=== PATIENT | male | born 1950 | race Caucasian/White ===

== ENCOUNTER 2016-10-28 12:52 | Emergency (ER) | payer OTHER ==
--- NOTE | 2016-10-28 13:00 | PDOC ---
History of Present Illness - General History Source: Patient Exam Limitations: No Limitations - History of Present Illness Initial Comments: 10/28/16 13:02 The patient is a 66 year old male, with a significant past medical history of right arthroscopic RCR and prior right shoulder dislocation, who presents to the emergency department with right shoulder pain since today. The patient reports falling off a ladder landing on his right shoulder earlier today. He denies any LOC or head trauma. Since then he reports having pain in his right shoulder with limited ROM and loss of strength in his right shoulder. He ranks his pain a 7/10 in pain intensity. He denies any numbness and tingling in his UE. 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 He denies any recent fevers, chills, headache or dizziness. He denies any recent nausea, vomit, diarrhea or constipation. He denies any other injuries or complaints of pain at this time. Allergies: NKA Past surgical history: see HPI Social History: Nonsmoker. Occasional drinker. Deines drug use. PCP: N/A <Jaxon Person - Last Filed: 10/28/16 15:21> - General History Source: Patient (Patient walked in along with family complaining of right shoulder pain, after reportedly fell off a ladder, landing on the right shoulder ) <Dalton Shafer - Last Filed: 10/28/16 16:23> - General Chief Complaint: Injury Stated Complaint: RT SHOULDER PAIN Time Seen by Provider: 10/28/16 12:54 Past History - Travel Traveled outside of the country in the last 30 days: No - Surgical History Orthopedic Surgery: Yes (Right RCR and right shoulder dislocation) <Jaxon Person - Last Filed: 10/28/16 15:21> <Dalton Shafer - Last Filed: 10/28/16 16:23> - Past Medical History Allergies/Adverse Reactions: Allergies Allergy/AdvReac Type Severity Reaction Status Date / Time No Known Allergies Allergy Verified 10/28/16 12:53 Home Medications: Ambulatory Orders Lisinopril 5 mg PO DAILY 10/28/16 Review of Systems - Review of Systems Constitutional: No: Symptoms Reported HEENTM: No: Symptoms Reported Respiratory: No: Symptoms reported Cardiac (ROS): No: Symptoms Reported ABD/GI: No: Symptoms Reported : No: Symptoms Reported Musculoskeletal: Yes: Joint Pain (Right shoulder pain.) Integumentary: No: Symptoms Reported Neurological: No: Symptoms reported Endocrine: No: Symptoms Reported <Jaxon Person - Last Filed: 10/28/16 15:21> *Physical Exam - Vital Signs Last Vital Signs Temp Pulse Resp BP Pulse Ox 98 F 76 17 125/81 97 10/28/16 12:53 10/28/16 12:53 10/28/16 12:53 10/28/16 12:53 10/28/16 12:53 - Physical Exam General Appearance: Yes: Nourished, Appropriately Dressed HEENT: positive: EOMI, HUMBLE, Normal ENT Inspection Neck: positive: Supple. negative: Tender Respiratory/Chest: positive: Lungs Clear, Normal Breath Sounds Cardiovascular: positive: Regular Rhythm, Regular Rate Gastrointestinal/Abdominal: positive: Normal Bowel Sounds, Soft. negative: Organomegaly Musculoskeletal: positive: Decreased Range of Motion (At the right shoulder.) Extremity: positive: Normal Capillary Refill, Tender (at the right shoulder), Other (Empty deltoid fossa on the right side. Neurovascular Intact.). negative : Normal Range of Motion (at the right shoulder. 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 of medication administered: 2mg Procedure: Traction Counter Traction Post-Procedure NV Exam: normal Post Joint Reduction Film: joint reduced Progress: 10/28/16 15:11 was called and assisted with procedure. <Jaxon Person - Last Filed: 10/28/16 15:21> ED Treatment Course - RADIOLOGY Radiograph Interpretation: 10/28/16 14:41 RIGHT SHOULDER X-RAY impressions reported by and : Imaging reveals an anterior dislocation of the humeral head with evidence of prior surgery and what may be of glenoid fracture. - Medications Given in the ED: ED Medications Discontinued Medications Generic Name Dose Route Start Last Admin Trade Name Sherly PRN Reason Stop Dose Admin Oxycodone/Acetaminophen 2 combo 10/28/16 13:02 10/28/16 13:10 Percocet 5/325 - PO 10/28/16 13:03 2 combo ONCE ONE Administration <Jaxon Person - Last Filed: 10/28/16 15:21> Progress Note - Progress Note Progress Note: Conscious sedation performed by me, Versed, Poropofol iv with constant monitoring VS while DSr Oh was performing external reduction with full recovery , X Ray post reduction OK. Patient observed for another hour, , made arrangement for follow up visit in Dr Clarke office tomorrow a.m. Left accompanied by family, and daughter. <Dalton Shafer - Last Filed: 10/28/16 16:23> Medical Decision Making - Medical Decision Making 10/28/16 12:54 Patient upon immediate arrival to the ER, received two pills of percocets with good alleviation of his pain. 10/28/16 14:28 Call made to , case discussed. Advised we do a reduction of the right shoulder in the ER and that the patient should follow up with tomorrow , 10/29/16, at the office. 10/28/16 14:56 Call made to , again case discussed, will come to ER and assist with reduction. <Jaxon Person - Last Filed: 10/28/16 15:21> *DC/Admit/Observation/Transfer - Attestations Scribe Attestion: 10/28/16 14:27 Documentation prepared by Jaxon Person, acting as rn medical surgical for Dalton Shafer MD. <Jaxon Person - Last Filed: 10/28/16 15:21> - Discharge Dispostion Admit: No <Dalton Shafer - Last Filed: 10/28/16 16:23> Diagnosis at time of Disposition: Shoulder dislocation Qualifiers: Encounter type: initial encounter Laterality: right Qualified Code(s): S43.004A - Unspecified dislocation of right shoulder joint, initial encounter - Discharge Dispostion Disposition: HOME Condition at time of disposition: Improved - Referrals Referrals: Don Wade MD [Staff Physician] - - Patient Instructions Printed Discharge Instructions: DI for Shoulder Dislocation Additional Instructions: Keep arm in the immobilizer. See Dr Wade in the office tomorrow
[2016-10-28] MEDS ORDERED: OXYCODONE/APAP 5/325MG COMBO TABLET PO ONE (13:02)
[2016-10-28 13:07] VITALS: TEMP 98; BMI 34.9
[2016-10-28] MEDS ORDERED: OXYCODONE/APAP 5/325MG COMBO TABLET ONE (13:17)
[2016-10-28] MEDS ORDERED: PROPOFOL 200 MG/20 ML VIAL IVPUSH ONE ×2 (14:18→15:36)
[2016-10-28] MEDS ORDERED: MIDAZOLAM HCL 2 MG/2 ML SINGLE DOSE VIAL IVPUSH ONE (14:18)
[2016-10-28] MEDS ORDERED: MIDAZOLAM HCL 2 MG/2 ML SINGLE DOSE VIAL ONE ×2 (14:37→15:05)
[2016-10-28] MEDS ORDERED: PROPOFOL 100 ML ONE (14:38)
[2016-10-28 16:04] VITALS: BP 124/75; PULSE 70
--- NOTE | 2016-10-28 17:36 | CONSULT ---
Consult - text type - Consultation Consultation Note: I am asked to assist in close reducing a right anterior shoulder dislocation in this patient with a prior history of arthroscopic rotator cuff repair. He fell from a ladder today. There was a gross deformity in the shoulder and a lot of pain. He was seen in the emergency room. An attempted close reduction under sedation was performed. They were not able to relocate the shoulder so they called me for assistance. Past medical history: Significant for hypertension and prior rotator cuff repair. Medications: Lipitor No known drug allergies Family history: Noncontributory Social history: Denies smoking or alcohol use. Review of systems: Denies recent fevers, chills, or weight loss. Physical examination: The patient is awake, alert, and oriented 3. There is a clear deformity of the right shoulder. The patient is clearly uncomfortable. He is tender to palpation over the right shoulder. There is no tenderness over the elbow or wrist. There are no overlying skin changes. There is no tenderness over the cervical/thoracic/lumbar spine. Motor strength is well maintained in both lower extremities. Passive range of motion of the hips is pain-free bilaterally. Distal pulses are 2+ bilaterally. There is no peripheral edema. Radiographic studies. 2 views of the right shoulder show an anterior shoulder dislocation with avulsion fragments in the area of the greater tuberosity. There are multiple anchors present. Impression: Traumatic right shoulder dislocation in this patient with prior history of rotator cuff repair. Plan: A closed reduction was performed under conscious sedation. A sling was placed. Postreduction radiographs show excellent reduction of the glenohumeral joint as well as the avulsion fragments in the greater tuberosity. The patient will wear the sling and follow up with Dr. Wade later this week for evaluation and treatment.
== END 2016-10-28 16:24 | disposition home or self-care (01) ==
LOC: FER 12:52
PROC: 0RSJXZZ Reposition Right Shoulder Joint, External Approach (ICD-10-PCS; principal; 2016-10-28)
DX: S43.004A Unspecified dislocation of right shoulder joint, initial encounter (principal); W11.XXXA Fall on and from ladder, initial encounter; Y93.9 Activity, unspecified; Y92.9 Unspecified place or not applicable
CPT/HCPCS: 23655; 73030-TC-RT; 99282-25